=== PATIENT | female | born 1975 | race African-American/Black ===

== ENCOUNTER 2017-07-05 21:13 | Emergency (ER) | payer BC ==
[~2017-07-05] VITALS: Ht 162.6 cm; Wt 86.4 kg
[~2017-07-05 21:13] MED LIST: ACLOVATE OINT 015 G1 TP; ADVAIR IH; ALBUTEROL SULFAT3 M3 IH; ALCLOMETASONE D TP; ALLEGRA-D 24HOU1 T24 PO; ALLEGRA-D 60 MG1 TER PO; AMOXICILLIN/CLA1 TA1; BIAXIN 500MG T500 MG PO; BIOTIN1 MG; COLACE100 MG PO; DARVOCET N 101 UDTAB PO; DICLOXACILLIN500 MG PO; DIFLUCAN; DILAUDID 2MG TAB2 MG PO; DOXYCYCLINE 10100 MG PO; FERROUS SULFAT150 MG PO; FLEXERIL 1010 MG/TAB PO; LEVAQUIN 5500 MG/TA1 PO; MACROBID 1100 MG/CAP PO; MULTIPLE VITAMI1 CAP PO; NORCO 325 MG-51 TAB PO; NORCO 325 MG-7.1 TAB PO; NYSTATIN OR100 MU/ML PO; PHENERGAN 25 TA25 MG PO; PREDNISONE10 MG PO; PREDNISONE20 MG; PREDNISONE20 MG PO; PRENATAL1 TA1 PO; PROMETHAZINE12.5 M5 PO; PROVENTIL0.09 MG/A1 IH; PULMICORT0.5 MG/2 M IH; SINGULAIR; SINGULAIR 110 MG/TAB PO; ULTRAM 50MG TAB50 MG PO; VITAMIN D1000 IU PO; ZITHROMAX 250M250 MG PO; ZOFRAN8 MG PO; ZYRTEC 10MG10 MG PO
[2017-07-05 21:16] VITALS: BP 161/78; TEMP 97.9
[2017-07-05 21:59] LABS: BASO # 0.2 (0.0-0.2); BASO % 1.9 % (0.0-2.0); EOS # 0.4 (0.0-0.7); EOS % 4.8 % (0-4.0); GRAN # 4.2 (1.4-6.5); GRAN % 52.8 % (42.2-75.2); HEMATOCRIT 39.4 % (37.0-47.0); HEMOGLOBIN 12.5 g/dl (12.5-16.0); LYMPH # 2.6 (1.2-3.4); LYMPH % 33.2 % (20.0-51.0); MEAN CELL VOLUME 85 fl (80.0-100.0); MEAN CORPUSCULAR HEMOGLOBIN 27 pg (27.0-31.0); MEAN CORPUSCULAR HGB CONC 32 g/dl (33.0-37.0); MEAN PLATELET VOLUME 9.9 fl (7.4-10.4); MONO # 0.6 (0.1-0.6); PLATELET COUNT 441 K/mm3 (130-400); RED BLOOD COUNT 4.64 M/mm3 (4.10-5.30); REDCELL DISTRIBUTION WIDTH-CV 13.9 % (11.5-14.5)
[2017-07-05 22:05] LABS: ALBUMIN 4.1 gm/dL (3.5-5.0); BILIRUBIN,TOTAL 0.6 mg/dL (0.0-1.0); CALCIUM 9.5 mg/dL (8.4-10.2); CREATININE, serum 0.91 mg/dL (0.52-1.25); POTASSIUM 4.3 mmol/L (3.4-5.0); TOTAL PROTEIN 7.5 gm/dL (6.4-8.2)
[2017-07-05 23:45] VITALS: PULSE 88
== END 2017-07-05 23:45 | disposition home or self-care (01) ==
LOC: COL.ER 21:13
PROVIDERS: Emergency Medicine
DX: R21 Rash and other nonspecific skin eruption (principal); R51 Headache; J45.909 Unspecified asthma, uncomplicated
CPT/HCPCS: J1200; J2765; J3010; J7030; J7512

== ENCOUNTER 2018-04-19 11:00 | Emergency (ER) | payer BC ==
[~2018-04-19] VITALS: Ht 162.6 cm; Wt 93.2 kg
[~2018-04-19 11:00] MED LIST changes: +VITAMIN D 1001000 IU PO; -VITAMIN D1000 IU PO
[2018-04-19 11:04] VITALS: TEMP 98
[2018-04-19 12:10] LABS: COLLECTION METHOD CLEAN CATCH
[2018-04-19 12:13] LABS: BASO # 0.1 (0.0-0.2); BASO % 1.1 % (0.0-2.0); EOS # 0.2 (0.0-0.7); EOS % 2.2 % (0-4.0); GRAN # 3.9 (1.4-6.5); GRAN % 54.3 % (42.2-75.2); HEMATOCRIT 40.2 % (37.0-47.0); LYMPH # 2.4 (1.2-3.4); LYMPH % 33.8 % (20.0-51.0); MEAN CELL VOLUME 83 fl (80.0-100.0); MEAN CORPUSCULAR HEMOGLOBIN 27 pg (27.0-31.0); MEAN CORPUSCULAR HGB CONC 32 g/dl (33.0-37.0); MEAN PLATELET VOLUME 9.7 fl (7.4-10.4); MONO # 0.6 (0.1-0.6); MONO % 8.5 % (1.7-9.3); PLATELET COUNT 337 K/mm3 (130-400); RED BLOOD COUNT 4.85 M/mm3 (4.10-5.30); REDCELL DISTRIBUTION WIDTH-CV 14.2 % (11.5-14.5)
[2018-04-19 12:29] LABS: MUCOUS Present /lpf; PH 5 (5-8); SQUAMOUS EPITHELIAL 0-2 /hpf; URINE APPEARANCE Clear; URINE BACTERIA None Seen /hpf; URINE BILIRUBIN Negative (NEGATIVE); URINE BLOOD Negative (NEGATIVE); URINE COLOR Yellow; URINE GLUCOSE Negative (NEGATIVE); URINE KETONE Negative (NEGATIVE); URINE LEUKOCYTE ESTERASE Trace (NEGATIVE); URINE NITRATE Negative (NEGATIVE); URINE PROTEIN(semi-quant) Negative (NEGATIVE); URINE RBC 0-2 /hpf; URINE UROBILINOGEN Negative (NEGATIVE)
[2018-04-19 12:31] LABS: ALANINE AMINOTRANSFERASE 34 U/L (9-52); ALBUMIN 4.4 gm/dL (3.5-5.0); ALKALINE PHOSPHATASE 62 U/L (50-136); ANION GAP 8 mmol/L (7-16); AST,SGOT 29 U/L (15-37); BILIRUBIN,TOTAL 1.2 mg/dL (0.0-1.0); BLOOD UREA NITROGEN 14 mg/dL (7-17); CALCIUM 9.6 mg/dL (8.4-10.2); CARBON DIOXIDE 23 mmol/L (22-30); CHLORIDE 107 mmol/L (98-107); CREATININE, serum 0.96 mg/dL (0.52-1.25); GLUCOSE 93 mg/dL (74-106); LIPASE 20 U/L (23-300); POTASSIUM 4.2 mmol/L (3.4-5.0); SODIUM 137 mmol/L (137-145); TOTAL PROTEIN 7.7 gm/dL (6.4-8.2)
[2018-04-19 12:37] LABS: C-REACTIVE PROTEIN < 0.5 mg/dL (0.0-0.9)
[2018-04-19] MEDS ORDERED: ULTRAM 50MG TAB50 MG PO (13:25)
[2018-04-19] MEDS ORDERED: CEPHALEXIN500 M1 PO (13:25)
[2018-04-19 13:30] VITALS: BP 128/82; PULSE 66
== END 2018-04-19 13:55 | disposition home or self-care (01) ==
LOC: COL.ER 11:00
PROVIDERS: Emergency Medicine
DX: N39.0 Urinary tract infection, site not specified (principal); Z90.49 Acquired absence of other specified parts of digestive tract; Z90.89 Acquired absence of other organs; Z88.5 Allergy status to narcotic agent
CPT/HCPCS: J0696; J1170; J2550; J7030

== ENCOUNTER → 2018-05-02 | Outpatient (CLI) | payer BC ==
[~2018-05-02] MED LIST changes: +CEPHALEXIN500 M1 PO
== END ==
LOC: COL.RAD 12:03
DX: R10.31 Right lower quadrant pain (principal)

== ENCOUNTER → 2018-09-11 | Outpatient (CLI) | payer BC | LOC: MC.RAD 13:15 | DX: Z12.31 Encounter for screening mammogram for malignant neoplasm of breast (principal); N63.10 Unspecified lump in the right breast, unspecified quadrant ==

== ENCOUNTER → 2018-09-18 | Outpatient (CLI) | payer BC | LOC: MC.RAD 08:45 | DX: N63.10 Unspecified lump in the right breast, unspecified quadrant (principal) ==

== ENCOUNTER → 2019-03-23 | Outpatient (CLI) | payer BC | LOC: MC.RAD 07:30 | DX: Z12.31 Encounter for screening mammogram for malignant neoplasm of breast (principal); N63.10 Unspecified lump in the right breast, unspecified quadrant | CPT/HCPCS: G0279 ==

== ENCOUNTER 2019-05-26 17:45 | Emergency (ER) | payer BC ==
[~2019-05-26] VITALS: Ht 162.6 cm; Wt 90.9 kg
[2019-05-26 18:20] VITALS: BP 141/76; TEMP 98.5
[2019-05-26 19:33] LABS: COLLECTION METHOD CLEAN CATCH
[2019-05-26 19:38] LABS: BASO # 0.1 (0.0-0.2); BASO % 1.1 % (0.0-2.0); EOS # 0.3 (0.0-0.7); EOS % 2.7 % (0-4.0); GRAN # 5.7 (1.4-6.5); GRAN % 57.3 % (42.2-75.2); HEMATOCRIT 42.1 % (37.0-47.0); HEMOGLOBIN 13.2 g/dl (12.5-16.0); LYMPH % 29.6 % (20.0-51.0); MEAN CELL VOLUME 85 fl (80.0-100.0); MEAN CORPUSCULAR HEMOGLOBIN 27 pg (27.0-31.0); MEAN CORPUSCULAR HGB CONC 31 g/dl (33.0-37.0); MEAN PLATELET VOLUME 9.5 fl (7.4-10.4); MONO # 0.9 (0.1-0.6); PLATELET COUNT 411 K/mm3 (130-400); RED BLOOD COUNT 4.97 M/mm3 (4.10-5.30); REDCELL DISTRIBUTION WIDTH-CV 15.2 % (11.5-14.5)
[2019-05-26 19:39] LABS: MUCOUS Present /lpf; PH 5 (5-8); SQUAMOUS EPITHELIAL 0-2 /hpf; URINE APPEARANCE Hazy; URINE BACTERIA None Seen /hpf; URINE BILIRUBIN Negative (NEGATIVE); URINE BLOOD Negative (NEGATIVE); URINE COLOR Yellow; URINE GLUCOSE Negative (NEGATIVE); URINE KETONE Negative (NEGATIVE); URINE LEUKOCYTE ESTERASE Negative (NEGATIVE); URINE NITRATE Negative (NEGATIVE); URINE PROTEIN(semi-quant) Negative (NEGATIVE); URINE RBC 0-2 /hpf; URINE UROBILINOGEN Negative (NEGATIVE)
[2019-05-26 19:56] LABS: ALANINE AMINOTRANSFERASE 28 U/L (9-52); ALBUMIN 4.6 gm/dL (3.5-5.0); ALKALINE PHOSPHATASE 66 U/L (50-136); ANION GAP 9 mmol/L (7-16); AST,SGOT 31 U/L (15-37); BILIRUBIN,TOTAL 0.8 mg/dL (0.0-1.0); BLOOD UREA NITROGEN 10 mg/dL (7-17); CALCIUM 9.4 mg/dL (8.4-10.2); CARBON DIOXIDE 27 mmol/L (22-30); CHLORIDE 101 mmol/L (98-107); CREATININE, serum 0.86 (0.52-1.25); GLUCOSE 86 mg/dL (74-106); LIPASE 27 U/L (23-300); SODIUM 137 mmol/L (137-145); TOTAL PROTEIN 8.1 gm/dL (6.4-8.2)
[2019-05-26 20:01] LABS: C-REACTIVE PROTEIN < 0.5 mg/dL (0.0-0.9)
[2019-05-26 22:01] VITALS: PULSE 71
== END 2019-05-26 22:01 | disposition home or self-care (01) ==
LOC: COL.ER 17:45
PROVIDERS: Emergency Medicine
DX: R10.30 Lower abdominal pain, unspecified (principal); Z90.89 Acquired absence of other organs
CPT/HCPCS: J2405; J3010; J7030; Q9967

== ENCOUNTER 2019-09-01 20:49 | Emergency (ER) | payer BC ==
[~2019-09-01] VITALS: Ht 162.6 cm; Wt 95.5 kg
[2019-09-01 20:54] VITALS: TEMP 97.2
[2019-09-02 00:08] VITALS: BP 143/95; PULSE 71
== END 2019-09-02 00:15 | disposition home or self-care (01) ==
LOC: COL.ER 20:49
DX: M79.642 Pain in left hand (principal); J45.909 Unspecified asthma, uncomplicated; Z79.51 Long term (current) use of inhaled steroids

== ENCOUNTER → 2019-10-05 | Outpatient (CLI) | payer BC, OTHER | LOC: MC.RAD 09-29 14:15 | DX: N63.10 Unspecified lump in the right breast, unspecified quadrant (principal); N64.89 Other specified disorders of breast | CPT/HCPCS: G0279 ==

== ENCOUNTER 2020-05-03 22:14 | Emergency (ER) | payer BC, OTHER ==
[~2020-05-03] VITALS: Ht 165.1 cm; Wt 93.2 kg
[2020-05-03 22:18] VITALS: TEMP 98.7
[2020-05-03 22:39] LABS: BASO # 0.1 (0.0-0.2); BASO % 1.6 % (0.0-2.0); EOS # 0.3 (0.0-0.7); EOS % 3.5 % (0-4.0); GRAN # 3.1 (1.4-6.5); GRAN % 40.8 % (42.2-75.2); HEMOGLOBIN 10.9 g/dl (12.5-16.0); LYMPH # 3.2 (1.2-3.4); LYMPH % 42.2 % (20.0-51.0); MEAN CELL VOLUME 78 fl (80.0-100.0); MEAN CORPUSCULAR HEMOGLOBIN 24 pg (27.0-31.0); MEAN CORPUSCULAR HGB CONC 31 g/dl (33.0-37.0); MEAN PLATELET VOLUME 9.4 fl (7.4-10.4); MONO # 0.9 (0.1-0.6); MONO % 11.6 % (1.7-9.3); PLATELET COUNT 464 K/mm3 (130-400); RED BLOOD COUNT 4.49 M/mm3 (4.10-5.30); REDCELL DISTRIBUTION WIDTH-CV 17.4 % (11.5-14.5)
[2020-05-03 22:49] LABS: ALANINE AMINOTRANSFERASE 17 U/L (4-34); ALBUMIN 4.2 gm/dL (3.5-5.0); ALKALINE PHOSPHATASE 51 U/L (50-136); ANION GAP 7 mmol/L (7-16); AST,SGOT 22 U/L (15-37); BILIRUBIN,TOTAL 0.6 mg/dL (0.0-1.0); BLOOD UREA NITROGEN 15 mg/dL (7-17); CALCIUM 8.9 mg/dL (8.4-10.2); CARBON DIOXIDE 26 mmol/L (22-30); CHLORIDE 102 mmol/L (98-107); CREATININE, serum 1.01 (0.52-1.25); GLUCOSE 108 mg/dL (74-106); POTASSIUM 3.5 mmol/L (3.4-5.0); SODIUM 135 mmol/L (137-145); TOTAL PROTEIN 7.5 gm/dL (6.4-8.2)
[2020-05-03] MEDS ORDERED: PROTONIX 40MG T40 MG PO (22:57)
[2020-05-03 23:00] LABS: TROPONIN-I < 0.012 ng/mL (0.000-0.035)
[2020-05-03 23:04] LABS: COLLECTION METHOD CLEAN CATCH
[2020-05-03 23:09] LABS: PH 6 (5-8); SQUAMOUS EPITHELIAL 0-2 /hpf; URINE APPEARANCE Clear; URINE BACTERIA None Seen /hpf; URINE BILIRUBIN Negative (NEGATIVE); URINE BLOOD 3+ (NEGATIVE); URINE COLOR Straw; URINE GLUCOSE Negative (NEGATIVE); URINE KETONE Negative (NEGATIVE); URINE LEUKOCYTE ESTERASE Trace (NEGATIVE); URINE NITRATE Negative (NEGATIVE); URINE PROTEIN(semi-quant) Negative (NEGATIVE); URINE UROBILINOGEN Negative (NEGATIVE)
[2020-05-04 00:07] VITALS: BP 131/79; PULSE 77
== END 2020-05-04 00:07 | disposition home or self-care (01) ==
LOC: COL.ER 22:14
PROVIDERS: Family Medicine
DX: R42 Dizziness and giddiness (principal); Z88.2 Allergy status to sulfonamides; Z88.6 Allergy status to analgesic agent
CPT/HCPCS: J7030

== ENCOUNTER → 2020-05-18 | Outpatient (CLI) | payer BC ==
[~2020-05-18] MED LIST changes: +PROTONIX 40MG T40 MG PO
== END ==
LOC: MC.RAD 13:00
DX: R92.8 Other abnormal and inconclusive findings on diagnostic imaging of breast (principal); N64.89 Other specified disorders of breast

== ENCOUNTER → 2020-10-05 | Outpatient (CLI) | payer BC, OTHER ==
[~2020-10-05] MED LIST changes: +DULERA1 ARO IH
== END ==
LOC: MC.RAD 10:10
DX: Z12.31 Encounter for screening mammogram for malignant neoplasm of breast (principal)

== ENCOUNTER 2021-03-15 05:26 | Day surgery (SDC) | payer BC, OTHER ==
[~2021-03-15] VITALS: Ht 162.6 cm; Wt 91.8 kg
[~2021-03-15 05:26] MED LIST changes: -DULERA1 ARO IH
--- NOTE | 2021-03-15 05:37 | NUR ---
Patient ambulated to bay #7 with a steady gait and not use of assistive devices. Patient's mother is present in the waiting room. Medications and HX reviewed with the patient. Consent was reviewed at this time and the patient verbalized understanding of procedure. First and last name + were confirmed with the patient and verified with her wrist band. IV was started and LR is infusing without difficulty. Warm blanket provided. Non-slip socks are on. Side rails x2. Anterior lung sounds were clear, however a mild lower posterior wheeze was noted. Heart is in sinus rythm. Bowel sounds are present. Skin is warm, dry and intact. Patients mother was brought into the room and the patient used her inhaler and rinsed her mouth our after using it. Vitals obtained.
[2021-03-15] MEDS ORDERED: PROVENTIL0.09 MG/A1 IH (05:47)
[2021-03-15] MEDS ORDERED: DULERA1 ARO IH (05:48)
[2021-03-15 06:48] VITALS: BP 131/78; PULSE 80; TEMP 97.6
[2021-03-15] MEDS ORDERED: ULTRAM 50MG TAB50 MG PO (08:38)
[2021-03-15 09:15] VITALS: BP 115/64; PULSE 65; TEMP 98
--- NOTE | 2021-03-15 09:15 | NUR ---
Patient arrived on cart escorted by LYNDA Robles. Patient is drowsy and is able to answer basic questions. She is oriented x3. Report obatained. Vitals obtained. Patient states mild pain in lower abdomen. No bleeding or swelling present. Patient requested ice chips and is tolerating them well. She requested to sleep before her Mom comes in. Side rails x2. Call cooper is at bedside. Will continue to monitor in prescribed intervals.
[2021-03-15 09:30] VITALS: BP 118/66; PULSE 74
--- NOTE | 2021-03-15 09:30 | NUR ---
Vitals obtained. Patient is sleeping. Call cooper is next to her hand on the blankets
--- NOTE | 2021-03-15 09:40 | NUR ---
Mom was met in waiting room and said she has a zoom meeting. She said it was "fine to stay out here while she sleeps." RN told her she would let her know when the patient is more alert.
[2021-03-15 09:45] VITALS: BP 116/58; PULSE 64
--- NOTE | 2021-03-15 09:45 | NUR ---
Vitals obtained. Patient is still sleeping. Call cooper is within reach. Side rails x2
[2021-03-15 10:00] VITALS: BP 112/53; PULSE 66
--- NOTE | 2021-03-15 10:00 | NUR ---
Vitals obatined. Patient is still sleeping. Will continue to monitor per intervals.
[2021-03-15 11:00] VITALS: BP 125/65; PULSE 74
--- NOTE | 2021-03-15 11:00 | NUR ---
Patient is starting to wake up more. She is stating pain in her lower abdomen. Patient requested applesauce and is tolerating it well. Her mother is out running an errand and has not called. Patient asked for help obtaining her phone from her purse. RN held her purse as the patient found her phone in her bag. Vitals obtained.
--- NOTE | 2021-03-15 11:52 | NUR ---
Patient is currently eating jello and has called her Mom.
--- NOTE | 2021-03-15 11:55 | NUR ---
Patient is reporting increasing pain, 09/22. called and orders recieved due to allergy with Tramadol.
--- NOTE | 2021-03-15 12:00 | NUR ---
PRN pain medication administered. Patient reports good relief from pain.
--- NOTE | 2021-03-15 12:14 | NUR ---
Patient was assisted to edge of bed to dangle her feet before ambulating. Sitting blood pressure obtained and is 133/73. Patient asked to stay seated and will use call cooper to notify RN when she is ready to walk to bathroom. Patient verbalized understanding.
--- NOTE | 2021-03-15 12:50 | NUR ---
Patient was assisted to the bathroom by LYNDA Holly. Patient is having difficulty voiding at this time and asked to go back to bed. Patient was assisted into bed. More jello and fresh water given.
--- NOTE | 2021-03-15 13:15 | NUR ---
Patient requested assistance going back to the bathroom. Her mom is present now and is helping the patient alongside LYNDA Holly. Patient is still having issues voiding, even after trying a few tricks such as running the water and changing position on the toilet.
--- NOTE | 2021-03-15 13:30 | NUR ---
Patient was assisted back to bed after walking the halls with the RN and her mother. Bladder scan shows 412ml in bladder. Message was left with DR Holguin.
--- NOTE | 2021-03-15 13:35 | NUR ---
New orders recieved: the patient can be discharged without voiding. Patient expressed being very thankful and happy. IV was removed and pressure dressing applied. Catheter tip intact. Discharge instructions were reviewed, along with the educational material. The patient and her mother verbalized understanding and the patient signed the realted paperwork. The patients mother said she would assist the patient with changing into her personal clothes. Call cooper is within reach.
--- NOTE | 2021-03-15 13:50 | NUR ---
Patient was escorted downstairs by LYNDA Fields with the patients mother. The patients mother has the discharge instructions, educational material and the patients personal belongings. The patient and her mother denied having any further questions or concerns. The patient was transferred into the care of her mother at this time, who is present to drive the patient home and support her as needed.
== END 2021-03-15 13:55 | disposition home or self-care (01) ==
LOC: SDCO 05:26
DX: N70.11 Chronic salpingitis (principal); K66.0 Peritoneal adhesions (postprocedural) (postinfection); N85.8 Other specified noninflammatory disorders of uterus; G89.29 Other chronic pain; K21.9 Gastro-esophageal reflux disease without esophagitis; J45.909 Unspecified asthma, uncomplicated; G43.909 Migraine, unspecified, not intractable, without status migrainosus; G40.909 Epilepsy, unspecified, not intractable, without status epilepticus; Z79.899 Other long term (current) drug therapy; Z79.891 Long term (current) use of opiate analgesic
CPT/HCPCS: J1100; J1170; J2405; J2704; J2710; J3010

== ENCOUNTER 2021-07-27 22:16 | Emergency (ER) | payer OTHER, MEDICAID ==
[~2021-07-27 22:16] MED LIST changes: +DULERA1 ARO IH
[2021-07-27 22:31] VITALS: TEMP 98.3
[2021-07-27 22:57] LABS: BASO # 0.2 K/mm3 (0.0-0.2); BASO % 2.3 % (0.0-2.0); EOS # 0.6 K/mm3 (0.0-0.7); EOS % 9.1 % (0.0-4.0); GRAN # 2.9 K/mm3 (1.4-6.5); GRAN % 44.8 % (42.2-75.2); HEMOGLOBIN 11.5 g/dl (12.5-16.0); LYMPH # 2.2 K/mm3 (1.2-3.4); LYMPH % 33.5 % (20.0-51.0); MEAN CELL VOLUME 77 fl (80.0-100.0); MEAN CORPUSCULAR HEMOGLOBIN 24 pg (27-31); MEAN CORPUSCULAR HGB CONC 31 g/dl (33.0-37.0); MEAN PLATELET VOLUME 9.6 fl (7.4-10.4); MONO # 0.7 K/mm3 (0.1-0.6); PLATELET COUNT 452 K/mm3 (130-400); RED BLOOD COUNT 4.77 M/mm3 (4.10-5.30); REDCELL DISTRIBUTION WIDTH-CV 17.2 % (11.5-14.5)
[2021-07-27 23:04] LABS: HEMATOCRIT 36.8 % (37.0-47.0)
[2021-07-27 23:09] LABS: ALBUMIN 4.2 gm/dL (3.5-5.0); BILIRUBIN,TOTAL 0.6 mg/dL (0.2-1.2); C-REACTIVE PROTEIN 0.2 mg/dL (0.00-0.50); CALCIUM 9.1 mg/dL (8.4-10.2); CREATININE, serum 1.02 mg/dL (0.57-1.11); POTASSIUM 3.7 mmol/L (3.5-4.5); TOTAL PROTEIN 7.6 gm/dL (6.2-8.1)
[2021-07-27 23:48] LABS: COLLECTION METHOD CLEAN CATCH
[2021-07-28 00:24] LABS: MUCOUS Present (NOT PRESENT); PH 6 (5-8); SQUAMOUS EPITHELIAL 0-2 /hpf (0-10); URINE APPEARANCE Clear (CLEAR/HAZY); URINE BACTERIA None Seen /hpf (NONE SEEN); URINE BILIRUBIN Negative (NEGATIVE); URINE BLOOD 3+ (NEGATIVE); URINE COLOR Yellow (YELLOW); URINE GLUCOSE Negative (NEGATIVE); URINE KETONE Negative (NEGATIVE); URINE LEUKOCYTE ESTERASE Negative (NEGATIVE); URINE NITRATE Negative (NEGATIVE); URINE PROTEIN(semi-quant) Negative (NEGATIVE); URINE RBC >50 /hpf (0-2); URINE UROBILINOGEN Negative (NEGATIVE)
[2021-07-28 02:46] VITALS: BP 142/83; PULSE 75
== END 2021-07-28 02:46 | disposition home or self-care (01) ==
LOC: COL.ER 22:16
PROVIDERS: Nurse Practitioner Primary Care
DX: R10.13 Epigastric pain (principal); Z90.49 Acquired absence of other specified parts of digestive tract; Z32.02 Encounter for pregnancy test, result negative
CPT/HCPCS: J1790; J7030; Q9967

== ENCOUNTER → 2021-10-06 | Outpatient (CLI) | payer OTHER, MEDICAID | LOC: MC.RAD 10:00 | DX: Z12.31 Encounter for screening mammogram for malignant neoplasm of breast (principal) ==

== ENCOUNTER → 2023-10-10 | Outpatient (CLI) | payer OTHER, MEDICAID ==
[~2023-10-10] MED LIST changes: +ALLEGRA ALLERGY60 MG PO; +ERGOCALCIFER50000 IU PO
== END ==
LOC: MC.RAD 08:47
DX: Z12.31 Encounter for screening mammogram for malignant neoplasm of breast (principal)

== ENCOUNTER 2023-12-09 07:08 | Day surgery (SDC) | payer OTHER, MEDICAID ==
[~2023-12-09] VITALS: Ht 162.6 cm; Wt 89.8 kg
[~2023-12-09 07:08] MED LIST changes: -ALLEGRA ALLERGY60 MG PO; -ERGOCALCIFER50000 IU PO; +LR 1,000 ML IV SCH; +Ondansetron 4 MG/2 ML VIAL IV PRN
[2023-12-09] MEDS ORDERED: FLEXERIL 1010 MG/TAB PO (07:46)
[2023-12-09] MEDS ORDERED: ERGOCALCIFER50000 IU PO (07:46)
[2023-12-09] MEDS ORDERED: ALLEGRA ALLERGY60 MG PO (07:47)
[2023-12-09 08:11] VITALS: BP 146/86; PULSE 65; TEMP 97.8
[2023-12-09 09:25] VITALS: BP 116/89; PULSE 67
[2023-12-09 09:40] VITALS: BP 118/71; PULSE 60
[2023-12-09 09:55] VITALS: BP 127/71; PULSE 53
--- NOTE | 2023-12-09 15:06 | NUR ---
0925 PATIENT RETURNS TO [facility] VIA CART. PT AWAKE AND ALERT. RESPIRATIONS UNLABORED. AMBULATED TO RECLINER CHAIR WITH 2:1 SBA. PT DENIES NAUSEA OR ABDOMINAL PAIN. HOOKED UP TO MONITOR AND VS OBTAINED. CALL LIGHT AT SIDE AND MOM PRESENT. 0930 PATIENT TOLERATING JUICE AND JELLO WITHOUT NAUSEA OR DIFFICULTY SWALLOWING. 0940 IN ROOM SPEAKING WITH PATIENT. 0950 D/C INSTRUCTIONS REVIEWED WITH PATIENT. PT VERBALIZED UNDERSTANDING AND A COPY OF INSTRUCTIONS PROVIDED IN D/C FOLDER. 0955 PATIENT DRESSES SELF. 1105 PATIENT DISCHARGED FROM UNIT VIA W/C TO A PERSONAL VEHICLE. PT LEFT HOSPITAL IN STABLE CONDITION.
== END 2023-12-09 09:55 | disposition home or self-care (01) ==
LOC: SDCO 07:08
DX: D50.9 Iron deficiency anemia, unspecified (principal); K21.9 Gastro-esophageal reflux disease without esophagitis; K57.30 Diverticulosis of large intestine without perforation or abscess without bleeding; K64.0 First degree hemorrhoids; J45.909 Unspecified asthma, uncomplicated; E66.9 Obesity, unspecified
CPT/HCPCS: J2704; J7120